=== PATIENT | female | born 1990 | race Hispanic/Latino ===

== ENCOUNTER 2018-02-06 12:41 | Outpatient (CLI) | payer BC ==
[2018-02-06 13:39] LABS: #Eosinphils 0.1 thou/uL (0.0-0.7); #Lymphocytes 2.3 thou/uL (1.20-3.40); #Monocytes 0.4 thou/uL (0.11-0.59); #Neutrophils 4.6 thou/uL (1.40-6.50); %Basophils 0.2 % (0.0-1.0); %Eosinophils 0.9 % (0.0-10.0); %Lymphocytes 31.1 % (21.0-51.0); %Monocytes 5.7 % (0.0-10.0); %Neutrophils 62.2 % (42.0-75.0); Hemoglobin 12.3 g/dL (12.0-16.0); Mean Corpuscular HGB CONC 32.6 g/dL (32.0-36.0); Mean Platelet Volume 6.7 fL (7.4-10.4); Platelet Count 359 thou/uL (130-400); RBC Distribution Width 12.8 % (11.5-14.5); Red Blood Cell (RBC) Count 4.39 mill/uL (4.20-5.40); White Blood Cell (WBC) Count 7.4 thou/uL (4.8-10.8)
[2018-02-06 13:47] LABS: ALT (SGPT) 16 U/L (8-55); AST (SGOT) 13 U/L (5-34); Albumin 3.9 g/dL (3.5-5.0); Alkaline Phosphatase 54 U/L (40-150); Anion Gap 10 mmol/L (10-20); BUN (Urea Nitrogen) 8 mg/dL (7.0-18.7); Bilirubin, Total 0.5 mg/dL (0.2-1.2); Calc. Creatinine Clearance 0 mL/min (70-130); Calcium 9.2 mg/dL (7.8-10.44); Carbon Dioxide 24 mmol/L (22-29); Chloride 107 mmol/L (98-107); Estimated GFR-MDRD Greater than 90; Globulin 3.3 g/dL (2.4-3.5); Glucose 87 mg/dL (70-105); Potassium 3.7 mmol/L (3.5-5.1); Protein, Total 7.2 g/dL (6.0-8.3); Sodium 137 mmol/L (136-145)
[2018-02-06 14:00] LABS: BHCG - Serum Negative (NEGATIVE); Pregs Control Background? CLEAR/WHITE (CLR/WHITE); Pregs Control Bar Appear? YES (CONTROL BAR)
== END 2018-02-06 12:42 | disposition home or self-care (01) ==
LOC: LABBT 12:41
PROVIDERS: ATTEND Specialist
DX: Z01.812 Encounter for preprocedural laboratory examination (principal); K80.12 Calculus of gallbladder with acute and chronic cholecystitis without obstruction
CPT/HCPCS: 80053; 84703; 85025

== ENCOUNTER 2018-02-14 06:09 | Day surgery (SDC) | payer BC ==
[2018-02-06 13:04] VITALS: BMI 30.8
--- NOTE | 2018-02-07 01:34 | HP ---
HISTORY OF PRESENT ILLNESS: A 27-year-old female referred by MARKELL Anaya for symptomatic gallst ones. Gallbladder ultrasound on 06/12/2017, numerous gallstones, bile duct caliber normal. No recen t laboratories available. Patient has been having epigastric quadrant pain with intermittent nausea for over a year. She works at [employer]. She has continued ongoing pain. PAST MEDICATIONS: Oral contraceptives. PAST MEDICAL HISTORY: None. ALLERGIES: None. TOBACCO: None. ALCOHOL: Rarely. REVIEW OF SYSTEMS: Ten point noncontributory. PHYSICAL EXAMINATION: VITAL SIGNS: 174 pounds, 69 inches tall, 110/66, 57, 98.8 degrees. HEENT: Unremarkable. LUNGS: Clear to auscultation. CARDIAC: Regular rhythm, no murmur or gallop. ABDOMEN: Soft. Mild tenderness in epigastrium in the right upper quadrant. No guarding or rebound. EXTREMITIES: Unremarkable. Sclerae nonicteric. NECK: Axilla, groins without lymphadenopathy. Neurologically, intact with focal weakness. ASSESSMENT AND PLAN: Symptomatic gallbladder disease. I would recommend laparoscopic video cholecys tectomy. Risk of infection, bleeding, visceral biliary injury, open procedure discussed. Questions answered.
[2018-02-14] MEDS ORDERED: Ketorolac Tromethamine 30 MG/ML VIAL ONE (06:28)
[2018-02-14] MEDS ORDERED: Levofloxacin 500 mg/D5W 100 ml Premix Bag ONE (06:28)
[2018-02-14] MEDS ORDERED: Bupivacaine HCl 0.5%/Epinephrine 1:200,000/PF 30 ml Vial ONE (06:39)
[2018-02-14] MEDS ORDERED: Fentanyl 250 MCG/5 ML VIAL ONE (07:12)
[2018-02-14] MEDS ORDERED: Promethazine HCl 25 MG/ML VIAL ONE (08:17)
--- NOTE | 2018-02-14 08:27 | OP ---
DATE OF PROCEDURE: 02/14/2018 PREOPERATIVE DIAGNOSES: Chronic cholecystitis, cholelithiasis. POSTOPERATIVE DIAGNOSES: Chronic cholecystitis, cholelithiasis, cystic duct obstruction with hydrops of the gallbladder. PROCEDURE: Laparoscopic video cholecystectomy. SURGEON: Dr. Calixto Fernández ANESTHESIA: General. Local 0.5% Marcaine with epinephrine, 30 mL total volume used. ESTIMATED BLOOD LOSS: Less than 10 mL. PROCEDURE: The patient taken to the operating room under general anesthesia, abdomen was prepared wi th ChloraPrep, draped in routine fashion. Local anesthetic infiltrated in the skin and subcutaneous tissue about all port sites. Supraumbilical incision made. Pneumoperitoneum to 15 mmHg obtained wit h the Veress needle, replacing it with a 5 port and laparoscope inserted. Remainder of the ports brennan gabe under laparoscopic visualization. Right subxiphoid incision made and 11 port placed. Right subc ostal incision made mid clavicular anterior axillary lines and 5 ports placed. Liver appeared to be normal, grossly abdominal cavity was normal. Gallbladder was distended, thickened wall, difficult to grasp. Fundus grasped and reflected cephalad. Infundibulum grasped and reflected laterally. Cysti c artery and duct dissected free. Critical view obtained. Cystic artery and duct doubly clipped pro ximally, divided, and gallbladder dissected free from liver bed obtaining good hemostasis prior to di vision of final peritoneal attachments. Gallbladder and multiple stones removed, gallbladder was ful l of clear fluid and indicated hydrops with chronic obstruction. Good hemostasis obtained in liver b ed. Irrigant and pneumoperitoneum evacuated. All this instruments removed and all skin incisions ap proximated with interrupted subdermal 4-0 Monocryl and DermaGlue applied.
[2018-02-14] MEDS ORDERED: HYDROcodone/Acetaminophen 5/325 mg Tablet ONE (10:01)
[2018-02-14] MEDS ORDERED: Dexamethasone 20 MG/5 ML VIAL ONE (17:06)
[2018-02-14] MEDS ORDERED: Lidocaine 1% PF 5 ML VIAL ONE (17:06)
[2018-02-14] MEDS ORDERED: PROPOFOL 200 MG/20 ML VIAL ONE (17:06)
[2018-02-14] MEDS ORDERED: Glycopyrrolate 0.2 MG/ML 5 ML SYRINGE ONE (17:06)
== END 2018-02-14 10:50 | disposition home or self-care (01) ==
LOC: SDC 06:09
PROVIDERS: ATTEND Specialist
PROC: 0FT44ZZ Resection of Gallbladder, Percutaneous Endoscopic Approach (ICD-10-PCS; principal; 2018-02-14)
DX: K80.11 Calculus of gallbladder with chronic cholecystitis with obstruction (principal); K82.1 Hydrops of gallbladder; Z79.3 Long term (current) use of hormonal contraceptives
CPT/HCPCS: 88304; J0131; J0670; J1100; J1885; J1956; J2001; J2550; J2704; J3010

== ENCOUNTER 2019-09-20 09:22 | Emergency (ER) | payer BC ==
[2019-09-20] MEDS ORDERED: Adacel (T-DAP) 0.5 ML SYRINGE ONE (09:35)
[2019-09-20] MEDS ORDERED: Lidocaine 1% PF 5 ML VIAL ONE ×2 (10:12→10:19)
== END 2019-09-20 11:00 | disposition home or self-care (01) ==
LOC: ERS 09:22
DX: S61.111A Laceration without foreign body of right thumb with damage to nail, initial encounter (principal); Z23 Encounter for immunization; W26.8XXA Contact with other sharp object(s), not elsewhere classified, initial encounter
CPT/HCPCS: 11042; 90471; 90715; J2001